=== PATIENT | female | born 1980 | race Two or more races ===

== ENCOUNTER 2025-08-27 20:54 | Emergency (ER) | payer MEDICAID ==
[~2025-08-27] VITALS: Ht 170.2 cm; Wt 69.9 kg
[2025-08-27 23:46] VITALS: BP 115/81; TEMP 98; O2SAT 99
== END 2025-08-27 23:47 | disposition home or self-care (01) ==
LOC: ER 20:54
DX: S33.5XXA Sprain of ligaments of lumbar spine, initial encounter (principal); S13.4XXA Sprain of ligaments of cervical spine, initial encounter; S09.90XA Unspecified injury of head, initial encounter; I10 Essential (primary) hypertension; V89.2XXA Person injured in unspecified motor-vehicle accident, traffic, initial encounter; Y93.89 Activity, other specified; Y92.410 Unspecified street and highway as the place of occurrence of the external cause; Y99.8 Other external cause status
CPT/HCPCS: 70450-TC; 72125-TC; 72131-TC